=== PATIENT | female | born 1970 | race Caucasian/White ===

== ENCOUNTER 2019-09-05 13:59 | Outpatient (CLI) | payer BC ==
--- NOTE | 2019-09-05 15:55 | ULT ---
ULTRASOUND OF THYROID STANDARD: 09/05/19 HISTORY: Abnormal seen on recent exam. COMPARISON: None. FINDINGS: the right lobe of the thyroid measures 5.3 x 1.4 x 1.4 cm. Left lobe measures 3.9 x 1 x 1.5 cm. Isthm us is 2 mm in AP dimension. In the right lobe of the thyroid, superior pole, there is a 4 mm colloid cyst. In the superior pole left lobe of the thyroid is a 6 mm colloid cyst. The inferior pole of the left lobe is a 1 cm x 0.6 x 1 cm solid hypoechoic nodule which is wider than tall with well-defined margins without echogenic foci. This is TI-RADS 4, moderately suspicious. Giv en its size, follow-up ultrasound in six months/one year is recommended. IMPRESSION: 1. Nodule inferior pole left lobe of the thyroid is TI-RADS 4, moderately suspicious. Given its size, follow-up ultrasound in six months/one year is recommended. 2. Small colloid cyst superior pole of both lobes. POS: HOME
== END 2019-09-05 14:00 | disposition home or self-care (01) ==
LOC: BICULT 13:59
PROVIDERS: ATTEND Nurse Practitioner Family
DX: R68.89 Other general symptoms and signs (principal); E04.2 Nontoxic multinodular goiter
CPT/HCPCS: 76536

== ENCOUNTER 2020-04-05 08:51 | Outpatient (CLI) | payer BC ==
--- NOTE | 2020-04-05 10:07 | ULT ---
Thyroid sonogram HISTORY: Thyroid nodule. COMPARISON: 09/05/2019. FINDINGS: On today's exam, the right thyroid lobe is 5.4 cm length. A 0.7 cm cyst is present at the s uperior pole. Isthmus is 0.3 cm thickness. Left thyroid lobe measures up to 5.2 cm. A 0.6 cm cyst is present at the superior pole. At the inferior pole, the well-circumscribed oval predominantly solid slightly hypoechoic mass is 1.1 cm x 1.1 cm x 0.7 cm, wider than tall. No internal calcifications evident. It was 1.0 cm greatest diameter on the previous exam. IMPRESSION : Minimal if any growth of the left thyroid lobe inferior pole nodule (1.1 cm). TI RADS 4. Moderately suspicious. Based on the size, continued annual follow-up (year 2) is appropria te.
== END 2020-04-05 08:52 | disposition home or self-care (01) ==
LOC: BICULT 08:51
PROVIDERS: ATTEND Specialist
DX: E04.1 Nontoxic single thyroid nodule (principal)
CPT/HCPCS: 76536

== ENCOUNTER 2021-10-13 13:34 | Outpatient (CLI) | payer BC | END 2021-10-13 13:35 | disposition home or self-care (01) | LOC: BICULT 13:34 | PROVIDERS: ATTEND Specialist | DX: E04.1 Nontoxic single thyroid nodule (principal); E07.89 Other specified disorders of thyroid | CPT/HCPCS: 76536 ==